=== PATIENT | male | born 1995 | race Hispanic/Latino ===

== ENCOUNTER 2018-10-15 20:33 | Emergency (ER) | payer SELFPAY ==
[2018-10-15] MEDS ORDERED: IBUPROFEN 600 MG TABLET ONE (21:19)
== END 2018-10-15 21:39 | disposition home or self-care (01) ==
LOC: EDH 20:33
DX: R07.89 Other chest pain (principal)
CPT/HCPCS: 71045; 93005

== ENCOUNTER 2023-04-19 00:41 | Emergency (ER) | payer BC, OTHER ==
[~2023-04-19] VITALS: Ht 162.6 cm; Wt 53.1 kg
[2023-04-19 00:43] VITALS: BP 106/63; PULSE 65; RESP 18
== END 2023-04-19 02:43 | disposition left against medical advice (07) ==
LOC: EDH 00:41
DX: R10.9 Unspecified abdominal pain (principal); Z53.21 Procedure and treatment not carried out due to patient leaving prior to being seen by health care provider
CPT/HCPCS: 99281